=== PATIENT | male | born 1940 | race Caucasian/White ===

== ENCOUNTER 2019-01-03 07:12 | Day surgery (SDC) | payer MEDICARE, OTHER ==
[2018-12-27 10:52] LABS: HEMATOCRIT 42.8 % (37.9-51.0); HEMOGLOBIN 15.1 g/dL (13.5-17.0); MEAN CORPUSCULAR HEMOGLOBIN 31.3 pg (27.0-33.4); MEAN CORPUSCULAR HGB CONC 35.3 g/dL (32.0-36.0); MEAN CORPUSCULAR VOLUME 89 fl (80-97); PLATELET COUNT 158 10^3/uL (150-450); RED BLOOD COUNT 4.82 10^6/uL (4.35-5.55); RED CELL DISTRIBUTION WIDTH 13.5 % (11.5-14.0)
[2018-12-27 10:58] LABS: PROTHROMBIN TIME 12.6 SEC (11.4-15.4)
[2018-12-27 10:59] LABS: PARTIAL THROMBOPLASTIN TIME 30.3 SEC (23.5-35.8)
--- NOTE | 2018-12-27 11:02 | RADIOLOGY REPORT (SQ) ---
EXAM DESCRIPTION: CHEST PA/LATERAL COMPLETED DATE/TIME: 12/27/2018 10:05 am REASON FOR STUDY: PRE-OP COMPARISON: 10/10/2008 EXAM PARAMETERS: NUMBER OF VIEWS: two views TECHNIQUE: Digital Frontal and Lateral radiographic views of the chest acquired. RADIATION DOSE: NA LIMITATIONS: none FINDINGS: LUNGS AND PLEURA: No opacities, masses or pneumothorax. No pleural effusion. MEDIASTINUM AND HILAR STRUCTURES: No masses or contour abnormalities. HEART AND VASCULAR STRUCTURES: Heart normal size. No evidence for failure. Prior CABG. BONES: No acute findings. HARDWARE: Median sternotomy with evidence of prior CABG. Spinal stimulator device overlies midthorac ic spine. OTHER: No other significant finding. IMPRESSION: No evidence of acute cardiopulmonary process. TECHNICAL DOCUMENTATION: JOB ID: [id number] [employer]- All Rights Reserved Reading location - IP/workstation name: [email or web address]
[2018-12-27 11:05] LABS: APPEARANCE,URINE CLEAR; BILIRUBIN,URINE NEGATIVE (NEGATIVE); COLOR,URINE YELLOW; GLUCOSE, URINE >=500 mg/dL (NEGATIVE); KETONES,URINE NEGATIVE (NEGATIVE); LEUKOCYTE ESTERASE,URINE NEGATIVE (NEGATIVE); NITRITE,URINE NEGATIVE (NEGATIVE); PROTEIN,URINE NEGATIVE (NEGATIVE); URINE SPECIFIC GRAVITY 1.023; UROBILINOGEN,URINE NEGATIVE mg/dL (<2.0)
--- NOTE | 2018-12-27 16:00 | EKG REPORT ---
SEVERITY:- ABNORMAL ECG - SINUS RHYTHM FIRST DEGREE AV BLOCK NONSPECIFIC INTRAVENTRICULAR CONDUCTION DELAY : Confirmed by: Eliecer Goncalves MD 27-Dec-2018 15:59:40
[~2019-01-03 07:12] MED LIST: CEFAZOLIN 1 GM/D5W RTU 1 GM/50 ML RTUPB IV PRN; LACTATED RINGERS 1000 ML IV PRN; LIDOCAINE 0.5% INJ-PF (5 MG/ML) 50 ML SDV SUBCUT PRN
[2019-01-03] MEDS ORDERED: CEFAZOLIN 1 GM/D5W RTU 1 GM/50 ML RTUPB IV ONE (07:34)
[2019-01-03] MEDS ORDERED: ALBUTEROL SULFATE 0.083% NEB 2.5 MG/3 ML AMPUL NEB ONE (08:16)
[2019-01-03] MEDS ORDERED: SODIUM BICARBONATE 8.4% INJ 50 MEQ/50 ML DISP.SYRIN ONE (09:01)
[2019-01-03] MEDS ORDERED: BUPIVACAINE HCL 0.5%-EPI 1:200000 INJ/PF 30 ML VIAL ONE (09:01)
[2019-01-03] MEDS ORDERED: LIDOCAINE 1% INJ-PF (10 MG/ML) 30 ML SDV ONE (09:01)
[2019-01-03] MEDS ORDERED: ONDANSETRON HCL INJ/PF 4 MG/2 ML SDV ONE (09:06)
[2019-01-03] MEDS ORDERED: MIDAZOLAM 2 MG/2 ML INJ ONE (09:06)
[2019-01-03] MEDS ORDERED: PROPOFOL INJ 200 MG/20 ML VIAL IV ONE (09:06)
[2019-01-03] MEDS ORDERED: FENTANYL CITRATE INJ/PF 100 MCG/2 ML AMPUL ONE (09:06)
[2019-01-03] MEDS ORDERED: ACETAMINOPHEN 1,000 MG/100 ML RTUPB IV ONE (09:07)
[2019-01-03] MEDS ORDERED: MEPERIDINE HCL/PF INJ 25 MG/1 ML DISP.SYRIN IV PRN (09:46)
[2019-01-03] MEDS ORDERED: MORPHINE SULFATE 10 MG/ML INJ IV PRN (09:46)
[2019-01-03] MEDS ORDERED: PROMETHAZINE HCL INJ 25 MG/1 ML VIAL IV PRN ×2 (09:46)
[2019-01-03] MEDS ORDERED: DIPHENHYDRAMINE HCL 50 MG/ML VIAL IV PRN (09:46)
[2019-01-03] MEDS ORDERED: FENTANYL CITRATE INJ/PF 100 MCG/2 ML AMPUL IV PRN ×3 (09:46)
[2019-01-03] MEDS ORDERED: CEFAZOLIN INJ 1 GM VIAL ONE (11:06)
[2019-01-03] MEDS ORDERED: OXYCODONE-ACETAMINOPHEN 5-325 MG TABLET PO PRN (11:30)
--- NOTE | 2019-01-03 11:58 | OPERATIVE REPORT E ---
Operative Report NAME: REINIER ALANIS : 1940 AGE: 78Y DATE OF SURGERY: 01/03/2019 ROOM: PREOPERATIVE DIAGNOSIS: Nonfunctioning spinal cord stimulator system. POSTOPERATIVE DIAGNOSIS: Nonfunctioning spinal cord stimulator system. OPERATIVE PROCEDURES: 1. Remove and replace programmable rechargeable pulse generator. 2. Remove and replace both spinal cord stimulating octrodes. 3. Fluoroscopy for needle placement and wire guidance and complex analysis from programming of pulse generator. SURGEON: BREE BHANDARI M.D. ANESTHESIA: MAC. CABINET AND TRIM INSTALLER: Justo Walton M.D. INDICATION: Nonfunctioning system. BLOOD LOSS: 10 mL. SPECIMENS REMOVED: None. PROCEDURE NOTE: After obtaining informed consent and advising the patient of the risks and benefits, including failure of the system to function properly, bleeding, infection, nerve injury, spinal cord injury, allergic reaction, and , he was taken to the operating room and placed comfortably in the prone position. Comfort was assessed visually and verbally. MAC anesthesia was administered. He was then prepped with chlorhexidine x2 with appropriate drying time and then draped. Under fluoroscopy, the spine was evaluated and the pulse generator site was identified over the left gluteal region. The skin over the pulse generator was anesthetized with 1% lidocaine with bicarb. Sharp and blunt dissection were performed down to the pulse generator and this was removed easily. Hemostasis was obtained with electrocautery as necessary. The generator was disconnected from the wires and the wires were connected to the new pulse generator and tested. The impedances remained inappropriate on the right lead. This was checked several times and continues to demonstrate nonfunctioning electrode. Decision was made to remove and place electrodes as well. Attention was directed to the lumbar region. It was then further evaluated under fluoroscopy and the incision site was determined. The skin was anesthetized, as before, with 1% lidocaine with bicarb. Sharp and blunt dissection were performed and hemostasis was obtained as necessary with electrocautery. The electrodes were identified as were the anchors. All of the instrumentation was removed. A suitable entrance site was identified for placement of the new electrodes. Some undermining of the skin and subcutaneous tissue was done to facilitate placement. Using a spinal needle 22 gauge, the perimuscular and perivertebral tissues were anesthetized. A 14-gauge Tuohy needle beginning on the left was then inserted into the epidural space at the T12-L1 interspace using a left paramedian technique. Tnzr-ba-esiwbsjezu to saline technique was utilized. The electrode was then inserted easily. This was repeated on the right side. Once into the epidural space and confirmed in AP and lateral views, the wires were advanced up to the mid T8 region. They were parallel in nature. Testing was pursued and suitable stimulation in all appropriate areas was identified, including stimulation in the back and stimulation in both lower extremities. Decision was made to complete the implant. The 0 pursestrings were placed around each needle followed by distal stay sutures; 0 Mersilene was utilized. The needle on the left was removed with care being taken not to move the electrode. The pursestring was secured followed by placement of the anchor over the electrode. This was secured and tied with the anchor sutures. This was repeated on the right. Lead position was checked again in AP and lateral views and was felt to be satisfactory without movement during securing of the leads. The leads were then tunneled to the pulse generator site after the tunnel pathway was anesthetized with 1% lidocaine. The right lead was marked and placed into the pulse generator in the 8-15 spot and the left lead was placed in the 0-7 spot. Impedance was checked and was satisfactory. All hex nuts were secured. The region was copiously irrigated. The pocket was undermined slightly to facilitate placement and closure. After copious irrigation, the pulse generator was placed into the pocket with the labeling facing the skin. The wound was closed with inverted vertical mattress sutures using 2-0 Polysorb followed by a more superficial layer of 3-0 Polysorb with the same technique. The skin was then taped and sealed with Dermabond cement. The lumbar incision, after copious irrigation and stay stitches for the electrodes, was closed with the same fashion followed by carissa for the skin. The patient did well. He was taken to the PACU for further postoperative care and monitoring. DICTATING PHYSICIAN: BREE BHANDARI M.D. [id number] PHY#: [id number] ID: [id number] JOB#: [id number] ACCT: [id number] cc:BREE BHANDARI M.D. >
--- NOTE | 2019-01-03 12:06 | RADIOLOGY REPORT (SQ) ---
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 NUMBER OF IMAGES: 9 images LIMITATIONS: None. FINDINGS: Intraoperative fluoroscopic images obtained to evaluate progress. Please see operative re port for detailed description of the procedure. IMPRESSION: IMAGE(S) OBTAINED DURING PROCEDURE. COMMENT: Quality ID 145: Final reports for procedures using fluoroscopy that document radiation exp osure indices, or exposure time and number of fluorographic images (if radiation exposure indices are not available) Please consult full operative report of the attending physician for description of the procedure. TECHNICAL DOCUMENTATION: JOB ID: [id number] [employer]- All Rights Reserved Reading location - IP/workstation name: [email or web address]
--- NOTE | 2019-01-03 12:06 | RADIOLOGY REPORT (SQ) ---
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 NUMBER OF IMAGES: 9 images LIMITATIONS: None. FINDINGS: Intraoperative fluoroscopic images obtained to evaluate progress. Please see operative re port for detailed description of the procedure. IMPRESSION: IMAGE(S) OBTAINED DURING PROCEDURE. COMMENT: Quality ID 145: Final reports for procedures using fluoroscopy that document radiation exp osure indices, or exposure time and number of fluorographic images (if radiation exposure indices are not available) Please consult full operative report of the attending physician for description of the procedure. TECHNICAL DOCUMENTATION: JOB ID: [id number] [employer]- All Rights Reserved Reading location - IP/workstation name: [email or web address]
[2019-01-03 13:29] VITALS: BP 136/72
== END 2019-01-03 13:00 | disposition home or self-care (01) ==
LOC: OROUT 07:12
PROVIDERS: ATTEND Pain Medicine Interventional Pain Medicine
DX: G89.4 Chronic pain syndrome (principal); S34.21XA Injury of nerve root of lumbar spine, initial encounter; X58.XXXA Exposure to other specified factors, initial encounter; M51.37 Other intervertebral disc degeneration, lumbosacral region; I10 Essential (primary) hypertension; I25.10 Atherosclerotic heart disease of native coronary artery without angina pectoris; R10.9 Unspecified abdominal pain; Z79.01 Long term (current) use of anticoagulants; Z79.899 Other long term (current) drug therapy; Z79.82 Long term (current) use of aspirin; Z79.84 Long term (current) use of oral hypoglycemic drugs; Z88.5 Allergy status to narcotic agent; Z95.1 Presence of aortocoronary bypass graft; Z86.73 Personal history of transient ischemic attack (TIA), and cerebral infarction without residual deficits; Z85.828 Personal history of other malignant neoplasm of skin; I25.2 Old myocardial infarction
CPT/HCPCS: 93005; 36415; 82962; 85027; 85610; 85730; 81001; 71046; 72080; 93010; 63688; 63650; C1778; C1767; C1787; J2250; J3490 ×3; J0690 ×2; J3010; J2405; J2704; A9270; J0131; 1936